=== PATIENT | female | born 1960 ===

== ENCOUNTER 2021-01-05 07:00 | Inpatient (IN) | payer OTHER ==
[~2021-01-05] VITALS: Ht 165.1 cm; Wt 74.8 kg
== END 2021-01-13 11:11 | disposition home or self-care (01) | DRG 740 ==
LOC: OB/GYN 01-11 06:04 → O/R 01-11 06:04 → SURH 01-11 07:00 → OB/GYN 01-11 14:03
PROVIDERS: ADMIT Obstetrics & Gynecology Gynecologic Oncology; ATTEND Obstetrics & Gynecology Gynecologic Oncology
PROC: 07BC0ZZ Excision of Pelvis Lymphatic, Open Approach (ICD-10-PCS; 2021-01-11)
PROC: 0UT20ZZ Resection of Bilateral Ovaries, Open Approach (ICD-10-PCS; 2021-01-11)
PROC: 0UT70ZZ Resection of Bilateral Fallopian Tubes, Open Approach (ICD-10-PCS; 2021-01-11)
PROC: 0UT90ZZ Resection of Uterus, Open Approach (ICD-10-PCS; principal; 2021-01-11 10:30)
DX: C54.1 Malignant neoplasm of endometrium (principal); N71.0 Acute inflammatory disease of uterus; N72 Inflammatory disease of cervix uteri; N80.0 Endometriosis of uterus; D25.1 Intramural leiomyoma of uterus; D25.2 Subserosal leiomyoma of uterus; N83.319 Acquired atrophy of ovary, unspecified side